=== PATIENT | female | born 1925 | race Caucasian/White ===

== ENCOUNTER 2016-10-11 14:44 | Inpatient (IN) | payer OTHER, BC ==
[~2016-10-11] VITALS: Ht 154.9 cm; Wt 57.6 kg
[~2016-10-11 14:44] MED LIST: ALDACTONE25 MG PO; ASPIRIN81 M1 PO; BLOCADREN10 MG PO; PLAVIX75 MG PO; PRILOSEC40 MG PO; SPIRIVA1 INHALATI IH; ULTRAM50 MG PO; ZANTAC300 MG PO
[2016-10-11 15:27] LABS: HEMATOCRIT 42.1 % (36.0-46.0); MCH 31.4 PG (29.0-34.0); MCHC 33.7 G/DL (30.0-36.0); MCV 93.1 FL (83-99); MEAN PLAT.VOLUME 10.1 uM^3 (9.5-12.4); PLATELET COUNT 193 K/uL (156-360); RBC DIS.WIDTH-CV 13.5 % (11.8-14.6); RBC DIS.WIDTH-SD 46.6 % (39-53); RED BLOOD COUNT 4.52 M/uL (3.80-5.20); WHITE BLOOD COUNT 13.2 K/uL (4.1-10.2)
[2016-10-11 15:36] LABS: CHLORIDE 99 mEq/L (99-109); POTASSIUM 3.3 mEq/L (3.7-5.4); SODIUM 139 mEq/L (136-147)
[2016-10-11 15:37] LABS: GLUCOSE 135 mg/dL (70-99)
[2016-10-11 15:38] LABS: D-DIMER ELISA 0.62 mg/L FEU (< 0.57)
[2016-10-11 15:39] LABS: ANION GAP 13 MEQ/L (2-14)
[2016-10-11 15:41] LABS: GFR ESTIMATE (CALCULATED) > 59 mL/min/
[2016-10-11 15:42] LABS: UREA NITROGEN (BUN) 13 mg/dL (9-23)
[2016-10-11 15:48] LABS: TROP-I INTERPRETATION NEGATIVE; TROPONIN-I < 0.01 ng/mL (0.0-0.30)
[2016-10-11] MEDS ORDERED: SPIRIVA1 INHALATI IH (17:21)
[2016-10-11] MEDS ORDERED: OMEPRAZOLE40 M1 PO (17:22)
[2016-10-11] MEDS ORDERED: ATIVAN0.5 MG PO (17:23)
[2016-10-11] MEDS ORDERED: ROBITUSSIN DM118 ML PO (17:23)
[2016-10-11 21:27] VITALS: BP 186/85
[2016-10-12 06:27] LABS: EOSINOPHIL (%) 0 % (0-5); HEMATOCRIT 39.4 % (36.0-46.0); IMMATURE GRANULOCYTE (%) 0.4 % (0.0-0.7); LYMPHOCYTE COUNT 0.8 K/uL (1.0-2.8); MCH 32.1 PG (29.0-34.0); MCHC 34.3 G/DL (30.0-36.0); MCV 93.8 FL (83-99); MEAN PLAT.VOLUME 11.1 uM^3 (9.5-12.4); MONOCYTE (%) 2.6 % (3-12); MONOCYTE COUNT 0.3 K/uL (0-0.8); PLATELET COUNT 180 K/uL (156-360); RBC DIS.WIDTH-CV 13.6 % (11.8-14.6); WHITE BLOOD COUNT 11.1 K/uL (4.1-10.2)
[2016-10-12 06:52] LABS: ALKALINE PHOSPHATASE 82 IU/L (3-129); ANION GAP 9 MEQ/L (2-14); CHLORIDE 103 MEQ/L (99-109); GFR ESTIMATE (CALCULATED) > 59 mL/min/; GLUCOSE 130 mg/dL (70-99); SAMPLE HEMOLYSIS CHECK 0; SAMPLE ICTERIC CHECK 0; SAMPLE LIPEMIA CHECK 0; SODIUM 141 MEQ/L (136-147); TOTAL BILIRUBIN 0.7 MG/DL (0.0-1.0); UREA NITROGEN (BUN) 11 mg/dL (9-23)
[2016-10-12 07:39] VITALS: BP 167/86
[2016-10-12 15:09] VITALS: BP 118/59
[2016-10-12 23:47] VITALS: BP 120/60
[2016-10-13 07:41] VITALS: BP 82/58
[2016-10-13 08:57] LABS: HEMATOCRIT 42.2 % (36.0-46.0); MCH 31.3 PG (29.0-34.0); MCHC 33.4 G/DL (30.0-36.0); MCV 93.8 FL (83-99); RBC DIS.WIDTH-CV 13.8 % (11.8-14.6); RBC DIS.WIDTH-SD 47.8 % (39-53); WHITE BLOOD COUNT 12.1 K/uL (4.1-10.2)
[2016-10-13 08:59] LABS: ANION GAP 13 MEQ/L (2-14); CHLORIDE 101 MEQ/L (99-109); POTASSIUM 3.7 MEQ/L (3.7-5.4); SAMPLE HEMOLYSIS CHECK 0; SAMPLE ICTERIC CHECK 0; SAMPLE LIPEMIA CHECK 0; SODIUM 141 MEQ/L (136-147)
[2016-10-13 09:03] LABS: PLATELET COUNT 235 K/uL (156-360)
[2016-10-13 09:04] LABS: GFR ESTIMATE (CALCULATED) > 59 mL/min/; GLUCOSE 117 mg/dL (70-99); UREA NITROGEN (BUN) 15 mg/dL (9-23)
[2016-10-13 11:43] VITALS: BP 135/66
[2016-10-13 15:06] VITALS: BP 106/74
[2016-10-13 23:14] VITALS: BP 122/80
[2016-10-14 07:42] VITALS: BP 132/76
[2016-10-14 09:19] LABS: HEMATOCRIT 42.5 % (36.0-46.0); MCH 31.3 PG (29.0-34.0); MCHC 32.9 G/DL (30.0-36.0); MCV 94.9 FL (83-99); MEAN PLAT.VOLUME 11.3 uM^3 (9.5-12.4); PLATELET COUNT 252 K/uL (156-360); RBC DIS.WIDTH-CV 13.7 % (11.8-14.6); RBC DIS.WIDTH-SD 48.1 % (39-53); RED BLOOD COUNT 4.48 M/uL (3.80-5.20); WHITE BLOOD COUNT 8.6 K/uL (4.1-10.2)
[2016-10-14 09:29] LABS: CHLORIDE 101 mEq/L (99-109); POTASSIUM 3.2 mEq/L (3.7-5.4); SODIUM 140 mEq/L (136-147)
[2016-10-14 09:31] LABS: GLUCOSE 98 mg/dL (70-99)
[2016-10-14 09:32] LABS: ANION GAP 12 MEQ/L (2-14)
[2016-10-14 09:35] LABS: GFR ESTIMATE (CALCULATED) > 59 mL/min/; UREA NITROGEN (BUN) 15 mg/dL (9-23)
[2016-10-14] MEDS ORDERED: AUGMENTIN500 MG PO (09:37)
[2016-10-14] MEDS ORDERED: ADVAIR HFA120 INHALA IH (09:37)
[2016-10-14] MEDS ORDERED: DIGOXIN250 MCG PO (09:37)
== END 2016-10-14 15:07 | DRG 190 ==
LOC: EME → EDBD 14:44 → 5SOUTH 20:17 → EDOF 20:17 → 5SOUTH 21:08
PROVIDERS: Emergency Medicine; Hospitalist; Internal Medicine
DX: J44.0 Chronic obstructive pulmonary disease with (acute) lower respiratory infection (principal); J18.9 Pneumonia, unspecified organism; J44.1 Chronic obstructive pulmonary disease with (acute) exacerbation; I48.91 Unspecified atrial fibrillation; E87.6 Hypokalemia; R73.9 Hyperglycemia, unspecified; I10 Essential (primary) hypertension; G30.9 Alzheimer's disease, unspecified; F02.80 Dementia in other diseases classified elsewhere, unspecified severity, without behavioral disturbance, psychotic disturbance, mood disturbance, and anxiety; K21.9 Gastro-esophageal reflux disease without esophagitis; E78.00 Pure hypercholesterolemia, unspecified; F41.9 Anxiety disorder, unspecified; Z66 Do not resuscitate; I95.9 Hypotension, unspecified; Z87.891 Personal history of nicotine dependence
CPT/HCPCS: 71020; 80048; 80053; 83605; 84484; 85025; 85027; 85379; 87040; 87070; 87205; 87449; 93005; 94640; 94640 76; 94760; 94799; 99202; 99281; 99285; J0456; J0692; J1644; J1956; J7050; J7512

== ENCOUNTER 2017-01-21 11:36 | Emergency (ER) | payer OTHER, BC ==
[~2017-01-21] VITALS: Ht 157.5 cm; Wt 55.7 kg
[~2017-01-21 11:36] MED LIST changes: +ADVAIR HFA120 INHALA IH; +ATIVAN0.5 MG PO; +AUGMENTIN500 MG PO; +DIGOXIN250 MCG PO; +OMEPRAZOLE40 M1 PO; +ROBITUSSIN DM118 ML PO
[2017-01-21 12:09] LABS: POINT-OF-CARE METER ID UU13113702
[2017-01-21 16:02] VITALS: BP 130/68
== END 2017-01-21 16:47 | disposition home or self-care (01) ==
LOC: EME → EDBD 11:36 → EME 16:47
DX: S01.112A Laceration without foreign body of left eyelid and periocular area, initial encounter (principal); S09.8XXA Other specified injuries of head, initial encounter; W18.30XA Fall on same level, unspecified, initial encounter; Y92.199 Unspecified place in other specified residential institution as the place of occurrence of the external cause; G30.9 Alzheimer's disease, unspecified; F02.80 Dementia in other diseases classified elsewhere, unspecified severity, without behavioral disturbance, psychotic disturbance, mood disturbance, and anxiety; I10 Essential (primary) hypertension; J44.9 Chronic obstructive pulmonary disease, unspecified; Z87.891 Personal history of nicotine dependence
CPT/HCPCS: 70450; 72170; 82948; 99281; 99284

== ENCOUNTER 2017-01-31 10:09 | Emergency (ER) | payer OTHER, BC ==
[~2017-01-31] VITALS: Ht 157.5 cm; Wt 52.6 kg
[2017-01-31] MEDS ORDERED: DOXYCYCLINE HY100 MG PO (13:32)
[2017-01-31 14:39] VITALS: BP 132/55
== END 2017-01-31 14:40 | disposition home or self-care (01) ==
LOC: EME 10:09
DX: J40 Bronchitis, not specified as acute or chronic (principal); J44.9 Chronic obstructive pulmonary disease, unspecified; G30.9 Alzheimer's disease, unspecified; F02.80 Dementia in other diseases classified elsewhere, unspecified severity, without behavioral disturbance, psychotic disturbance, mood disturbance, and anxiety; I10 Essential (primary) hypertension; Z87.891 Personal history of nicotine dependence
CPT/HCPCS: 71010; 99281; 99284; J1100